=== PATIENT | female | born 1970 | race American Indian/Alaskan Native ===

== ENCOUNTER 2018-06-24 02:13 | Emergency (ER) | payer MEDICAID ==
[2018-06-24 02:38] VITALS: BP 125/75
[2018-06-24 03:26] LABS: Basophils % (Auto) 0.5 % (0.0-1.8); Eosinophils # (Auto) 0.1 K/mm3 (0.0-0.4); Hematocrit 37.7 % (30.3-42.9); Hemoglobin 12.9 gm/dl (10.1-14.3); Lymphocytes # (Auto) 2.1 K/mm3 (1.2-5.4); Lymphocytes % (Auto) 53.1 % (13.4-35.0); Mean Corpuscular HGB Conc 34 % (30-34); Mean Corpuscular Volume 94 fl (79-97); Monocytes # (Auto) 0.3 K/mm3 (0.0-0.8); Monocytes % (Auto) 7.6 % (0.0-7.3); Platelet Count 195 K/mm3 (140-440); Red Cell Distribution Width 13.8 % (13.2-15.2)
[2018-06-24 03:48] LABS: Alanine Aminotransferase 18 units/L (7-56); Albumin 3.8 g/dL (3.9-5); BUN/Creatinine Ratio 13; Blood Urea Nitrogen 10 mg/dL (7-17); Calcium 8.8 mg/dL (8.4-10.2); Hemolysis Index 6
[2018-06-24] MEDS ORDERED: TYLENOL ONE (04:08)
[2018-06-24] MEDS ORDERED: TYLENOL PO ONE (04:11)
[2018-06-24] MEDS ORDERED: MORPHINE IV ONE (06:21)
[2018-06-24] MEDS ORDERED: ZOFRAN IV ONE (06:21)
[2018-06-24 06:53] LABS: Bilirubin,Urine NEG (Negative); Blood,Urine NEG (Negative); Color,Urine Yellow (Yellow); Protein,Urine <15 mg/dL mg/dL (Negative); Urobilinogen,Urine < 2.0 mg/dL (<2.0)
--- NOTE | 2018-06-24 07:57 | Emergency Department Report ---
ED Female HPI - General Chief complaint: Abdominal Pain Stated complaint: ABDOMINAL PAIN Time Seen by Provider: 06/24/18 07:20 Source: patient Mode of arrival: Ambulatory Limitations: No Limitations - History of Present Illness Initial comments: Further 8-year-old female presents to the ED complaining of low pelvic pain similar to the pain she had some months ago from ovarian cyst. She states that she has not followed up with [facility] regarding the ovarian cyst. She admits vaginal normal discharge with itching. Patient does states she has a history of recurrent yeast infections. She denies vaginal bleed, fever nausea vomiting MD Complaint: vaginal discharge, pelvic pain -: Gradual, week(s) Location: suprapubic Radiation: non-radiating Severity: moderate Severity scale (0 -10): 5 Quality: aching Consistency: constant Improves with: none Worsens with: urination Are you Now?: No Associated Symptoms: vaginal discharge - Related Data Sexually active: Yes (with of 15 years) Previous Rx's Medication Instructions Recorded Last Taken Type Acetaminophen [Tylenol Arthritis] 650 mg PO Q6HR PRN #30 tablet.er 03/04/18 Unknown Rx Ibuprofen [Motrin] 600 mg PO Q8H PRN #30 tablet 03/04/18 Unknown Rx Metoclopramide [Reglan] 10 mg PO QID PRN #30 tablet 03/04/18 Unknown Rx levoFLOXacin [Levaquin] 750 mg PO QDAY #10 tablet 03/04/18 Unknown Rx oxyCODONE [Roxicodone] 5 mg PO Q6HR PRN #15 tablet 03/04/18 Unknown Rx Fluconazole [Diflucan TAB] 150 mg PO ONCE #1 tablet 06/24/18 Unknown Rx Ibuprofen [Motrin 800 MG tab] 800 mg PO Q8HR PRN #12 tablet 06/24/18 Unknown Rx metroNIDAZOLE 0.75% [Vandazole 1 applicator VG QHS #1 tube 06/24/18 Unknown Rx 0.75% VAGINAL] traMADol [Ultram 50 MG tab] 50 mg PO Q6HR PRN #20 tablet 06/24/18 Unknown Rx Allergies Allergy/AdvReac Type Severity Reaction Status Date / Time Sulfa (Sulfonamide Allergy Unknown Verified 03/04/18 18:09 Antibiotics) ED Review of Systems ROS: Stated complaint: ABDOMINAL PAIN Other details as noted in HPI Comment: All other systems reviewed and negative ED Past Medical Hx - Past Medical History Previous Medical History?: Yes Additional medical history: Ovarian Cyst - Surgical History Past Surgical History?: Yes Additional Surgical History: C section, Bunionectomy with screws - Social History Smoking Status: Former Smoker Substance Use Type: None - Medications Home Medications: Home Medications Medication Instructions Recorded Confirmed Last Taken Type Acetaminophen [Tylenol Arthritis] 650 mg PO Q6HR PRN #30 tablet.er 03/04/18 Unknown Rx Ibuprofen [Motrin] 600 mg PO Q8H PRN #30 tablet 03/04/18 Unknown Rx Metoclopramide [Reglan] 10 mg PO QID PRN #30 tablet 03/04/18 Unknown Rx levoFLOXacin [Levaquin] 750 mg PO QDAY #10 tablet 03/04/18 Unknown Rx oxyCODONE [Roxicodone] 5 mg PO Q6HR PRN #15 tablet 03/04/18 Unknown Rx Fluconazole [Diflucan TAB] 150 mg PO ONCE #1 tablet 06/24/18 Unknown Rx Ibuprofen [Motrin 800 MG tab] 800 mg PO Q8HR PRN #12 tablet 06/24/18 Unknown Rx metroNIDAZOLE 0.75% [Vandazole 1 applicator VG QHS #1 tube 06/24/18 Unknown Rx 0.75% VAGINAL] traMADol [Ultram 50 MG tab] 50 mg PO Q6HR PRN #20 tablet 06/24/18 Unknown Rx ED Physical Exam - General Limitations: No Limitations General appearance: alert, in no apparent distress - Head Head exam: Present: atraumatic, normocephalic - Eye Eye exam: Present: normal appearance - ENT ENT exam: Present: mucous membranes moist - Neck Neck exam: Present: normal inspection - Respiratory Respiratory exam: Present: normal lung sounds bilaterally. Absent: respiratory distress - Cardiovascular Cardiovascular Exam: Present: regular rate, normal rhythm. Absent: systolic murmur, diastolic murmur, rubs, gallop - GI/Abdominal GI/Abdominal exam: Present: soft, normal bowel sounds. Absent: distended, tenderness, guarding, rebound, rigid, mass - Expanded GI/Abdominal Exam Expanded GI/Abdominal exam: Absent: psoas sign, obturator sign - Extremities Exam Extremities exam: Present: normal inspection - Back Exam Back exam: Present: normal inspection, full ROM. Absent: tenderness, CVA tenderness (R), CVA tenderness (L) - Neurological Exam Neurological exam: Present: alert, oriented X3 - Psychiatric Psychiatric exam: Present: normal affect, normal mood - Skin Skin exam: Present: warm, dry, intact, normal color. Absent: rash ED Course Vital Signs 06/24/18 02:18 Temperature 97.5 F L Pulse Rate 71 Respiratory 18 Rate Blood Pressure 125/75 O2 Sat by Pulse 100 Oximetry ED Medical Decision Making - Lab Data Result diagrams: 06/24/18 03:04 06/24/18 03:04 - Medical Decision Making 48-year-old female with a history of ovarian cysts presents with pelvic pain Will be treated for vulvo vaginitis. All labs are within normal limits, urinalysis shows no acute infection or any signs of UTI Upon examination patient normal abdomen evaluation, nontender. Patient received morphine while in the ED. Patient verbalizes she is not worried about STDs due to have another one partner with her 15 years. Reviewed ultrasound from last visit, which was in 03/04/2018 shows a 3.[address] scan of the abdomen and pelvis was also obtained, tube was no acute process. Discussed the patient needs to follow-up with [facility]. Patient is feeling slightly better states that pain is resolved. [facility] referrals given to patient. Critical care attestation.: If time is entered above; I have spent that time in minutes in the direct care of this critically ill patient, excluding procedure time. ED Disposition Clinical Impression: Ovarian cyst, Vulvovaginal candidiasis Disposition: DC-01 TO HOME OR SELFCARE Is pt being admited?: No Does the pt Need Aspirin: No Condition: Stable Instructions: Abdominal Pain (ED) Additional Instructions: Make sure to follow up with the primary care physician as discussed. Take all your medications as you've been prescribed. If you have any worsening symptoms or develop new symptoms please return to ED immediately. Prescriptions: metroNIDAZOLE 0.75% [Vandazole 0.75% VAGINAL] 1 applicator VG QHS #1 tube Fluconazole [Diflucan TAB] 150 mg PO ONCE #1 tablet Ibuprofen [Motrin 800 MG tab] 800 mg PO Q8HR PRN #12 tablet PRN Reason: pain traMADol [Ultram 50 MG tab] 50 mg PO Q6HR PRN #20 tablet PRN Reason: Pain Referrals: EBER CHICAS [Primary Care Provider] - 3-5 Days LAUREN ROLON MD [Referring] - 3-5 Days [facility] [Outside] - 3-5 Days Forms: Work/School Release Form(ED) Time of Disposition: 08:04
== END 2018-06-24 08:31 | disposition home or self-care (01) ==
LOC: ED 02:13
DX: N83.209 Unspecified ovarian cyst, unspecified side (principal); B37.3 Candidiasis of vulva and vagina; Z87.891 Personal history of nicotine dependence
CPT/HCPCS: 36415; 80053; 81001; 85025; 96374; 96375; 99283; J2270; J2405